=== PATIENT | male | born 1990 | race African-American/Black ===

== ENCOUNTER 2019-06-22 12:25 | Emergency (ER) | payer OTHER, SELFPAY ==
[2019-06-22] MEDS ORDERED: Adacel (T-DAP) 0.5 ML SYRINGE ONE (14:21)
[2019-06-22] MEDS ORDERED: Ondansetron PF 4 MG/2 ML Vial ONE (14:21)
[2019-06-22] MEDS ORDERED: CEFAZOLIN 1 GM VIAL ONE (14:21)
[2019-06-22] MEDS ORDERED: Morphine 4 MG/ML VIAL ONE (14:21)
[2019-06-22] MEDS ORDERED: Lidocaine 1% w/Epinephrine 1:100K 20 ML VIAL ONE (14:51)
--- NOTE | 2019-06-22 17:53 | HP ---
HISTORY OF PRESENT ILLNESS: The patient is an otherwise healthy 29-year-old male who was playing with his own dog who is up-to-date on its shots when the dog bit his face. The patient has already been counseled as to rabies. PAST MEDICAL HISTORY: None. PAST SURGICAL HISTORY: None. MEDICATIONS: None. ALLERGIES: NONE. PHYSICAL EXAMINATION: HEENT: There is a stellate laceration of the patient's left upper lip. It extends from the inferior edge of the left philtral column superiorly and laterally through the skin, muscle, and oral mucosa. It extends up through the entirety of the upper lip into the cheek. Additionally, there is a separate laceration of the commissure and the left lower lip. These are mainly through the mucosa with minimal to no muscle disruption. ASSESSMENT: Dog bite to left face. The patient was seen at an outside ER and washed out. He has additionally got antibiotics at [facility]. PLAN: Repair. DESCRIPTION OF PROCEDURE: Following induction of adequate local anesthesia in the form of a mental nerve block, nasociliary block, and an infraorbital nerve block. The patient was prepped and draped in usual sterile fashion in supine position. A three-layer repair was done for the full height left upper lip laceration. A 4-0 chromic suture was used for the oral mucosa. The white roll was secured with 5-0 Prolene suture. The muscle was reapproximated with a series of interrupted 4-0 Monocryl sutures. The skin edges were approximated with interrupted 5-0 Monocryl suture followed by interrupted and running 5-0 Prolene suture. Attention was turned to the commissure and left lower lip lacerations. These had a little jagged flaps that were trimmed. Closure was then done with 5-0 Monocryl suture and 5-0 Prolene suture for the skin followed by 4-0 chromic suture for the mucosa. The lines of the commissure and lower lip combined were approximately 4.5 cm. The patient was given wound care instructions as well as followup. Job ID: [id number] [facility]
== END 2019-06-22 15:56 | disposition home or self-care (01) ==
LOC: ERS 12:25
DX: S01.551A Open bite of lip, initial encounter (principal); S01.511A Laceration without foreign body of lip, initial encounter; W54.0XXA Bitten by dog, initial encounter
CPT/HCPCS: 90715; 96361; 96374; 96375; J0690; J2270; J2405